=== PATIENT | female | born 1970 | race Two or more races ===

== ENCOUNTER 2020-04-29 05:17 | Day surgery (SDC) | payer BC ==
[2020-04-26 08:42] VITALS: BMI 29.2
[2020-04-29] MEDS ORDERED: ONDANSETRON 4 MG/2 ML VIAL IVPUSH PRN (09:31)
[2020-04-29] MEDS ORDERED: oxyCODONE HCL 5 MG TABLET PO PRN ×3 (09:31→13:50)
[2020-04-29] MEDS ORDERED: MIDAZOLAM HCL 2 MG/2 ML SINGLE DOSE VIAL ONE ×2 (09:39)
[2020-04-29] MEDS ORDERED: fentaNYL CITRATE 250 MCG/5 ML VIAL ONE (09:39)
[2020-04-29] MEDS ORDERED: PROPOFOL 20 ML ONE (09:39)
[2020-04-29] MEDS ORDERED: ROCURONIUM BROMIDE 50 MG/5 ML SYRINGE ONE (09:39)
[2020-04-29] MEDS ORDERED: LACTATED RINGERS SOLUTION 1,000 ML IV SCH (09:45)
[2020-04-29] MEDS ORDERED: DEXAMETHASONE SOD PHOSPHATE/PF 10 MG/ML SDV ONE (09:47)
[2020-04-29] MEDS ORDERED: ROPIVACAINE HCL 0.5% 30ML VIAL ONE (09:48)
[2020-04-29] MEDS ORDERED: ACETAMINOPHEN 325 MG TABLET (FP) PO PRN (09:53)
[2020-04-29] MEDS ORDERED: IBUPROFEN 600 MG TABLET (FP) PO PRN (09:53)
[2020-04-29] MEDS ORDERED: DESFLURANE GAS 240 ML BOTTLE IH ONE (10:45)
[2020-04-29] MEDS ORDERED: ceFAZolin SODIUM 1 GM VIAL ONE (10:45)
[2020-04-29] MEDS ORDERED: METHYLENE BLUE 50 MG/10 ML AMPUL ONE (10:47)
[2020-04-29] MEDS ORDERED: BUPIVACAINE HCL/PF 0.5% (5MG/ML) 10 ML VIAL IJ ONE ×2 (10:55→13:30)
[2020-04-29] MEDS ORDERED: ceFAZolin SODIUM 1 GM VIAL IVPB ONE (11:08)
[2020-04-29] MEDS ORDERED: DEXAMETHASONE SOD PHOSPHATE 4 MG/1 ML VIAL ONE (11:12)
[2020-04-29] MEDS ORDERED: PROMETHAZINE HCL 25 MG/1 ML VIAL IVPUSH PRN (13:59)
[2020-04-29] MEDS ORDERED: SCOPOLAMINE HYDROBROMIDE 1 PATCH PATCH.TD72 ONE (14:04)
[2020-04-29] MEDS ORDERED: MEPERIDINE HCL 25 MG/ML VIAL IVPUSH ONE (14:55)
[2020-04-29] MEDS ORDERED: MEPERIDINE HCL 25 MG/ML VIAL ONE (14:56)
[2020-04-29] MEDS ORDERED: MEPERIDINE HCL 25 MG/ML VIAL IVPUSH PRN (15:30)
[2020-04-29] MEDS: IBUPROFEN 800 MG/8 ML IJ IVPB PRN (17:38)
[2020-04-29] MEDS: BENZOCAINE/MENTH/CETYLPYRD CL 1 EACH LOZENGE MM PRN (20:39)
[2020-04-30] MEDS: IBUPROFEN 800 MG/8 ML IJ IVPB PRN (01:55)
[2020-04-30] MEDS: BENZOCAINE/MENTH/CETYLPYRD CL 1 EACH LOZENGE MM PRN (06:46)
[2020-04-30 09:04] LABS: HEMATOCRIT 38.3 % (32.4-45.2); HEMOGLOBIN 12.5 GM/dL (10.7-15.3); MCH 28.2 pg (25.7-33.7); MCHC 32.6 g/dl (32.0-36.0); MEAN CELL VOLUME 86.3 fl (80-96); MEAN PLT VOLUME 9.3 fl (7.5-11.1); PLATELET COUNT 254 K/MM3 (134-434); RBC 4.44 M/mm3 (3.60-5.2); RDW 13.2 % (11.6-15.6); WHITE BLOOD COUNT 16.6 K/mm3 (4.0-10.0)
[2020-04-30 09:24] LABS: BLOOD UREA NITROGEN 8.8 mg/dL (7-18); CALCIUM 8.7 mg/dL (8.5-10.1); POTASSIUM 4.5 mmol/L (3.5-5.1)
[2020-04-30 09:28] LABS: CREATININE 0.7 mg/dL (0.55-1.3)
[2020-04-30 14:40] VITALS: BP 118/68; PULSE 82; TEMP 98.6
== END 2020-04-30 15:30 | disposition home or self-care (01) ==
LOC: JASUSAT 05:17 → J3W 16:49 → JASUSAT 04-30 15:30
PROVIDERS: ATTEND Obstetrics & Gynecology
PROC: 0UT7FZZ Resection of Bilateral Fallopian Tubes, Via Natural or Artificial Opening With Percutaneous Endoscopic Assistance (ICD-10-PCS; 2020-04-29)
PROC: 0UT9FZZ Resection of Uterus, Via Natural or Artificial Opening With Percutaneous Endoscopic Assistance (ICD-10-PCS; principal; 2020-04-29 09:30)
DX: N94.6 Dysmenorrhea, unspecified (principal); N92.0 Excessive and frequent menstruation with regular cycle
CPT/HCPCS: 36415; 80048; 84703; 85027; 86850; 86900; 86901; 88302-TC; 88307-TC; 94760; Q9968